=== PATIENT | male | born 1965 | race Caucasian/White ===

== ENCOUNTER 2017-10-15 14:51 | Day surgery (SDC) | payer SELFPAY ==
[2017-10-15] MEDS ORDERED: Levofloxacin 500 mg/D5W 100 ml Premix Bag ONE (16:00)
[2017-10-15] MEDS ORDERED: Iothalamate Meglumine 60% 50 ML VIAL FS ONE (16:08)
[2017-10-15] MEDS ORDERED: Fentanyl 100 MCG/2 ML VIAL ONE ×2 (16:19→17:46)
[2017-10-15] MEDS ORDERED: Propofol 200 MG/20 ML VIAL ONE (16:39)
[2017-10-15] MEDS ORDERED: Lidocaine 2% PF 10 ML AMP (For Epidural Use) ONE (16:39)
[2017-10-15] MEDS ORDERED: Ondansetron HCl/PF 4 MG/2 ML Vial ONE (16:39)
[2017-10-15] MEDS ORDERED: Dexamethasone 20 MG/5 ML VIAL ONE (16:39)
[2017-10-15] MEDS ORDERED: Phenazopyridine HCl 97.5 MG TABLET ONE (17:31)
--- NOTE | 2017-10-15 17:36 | HP ---
ER CONSULTATION NOTE DATE OF CONSULTATION: 10/15/2017 REASON FOR CONSULTATION: Solitary right kidney with right UPJ obstructing stone. HISTORY OF PRESENT ILLNESS: Mr. Olivarez is a 52-year-old male, who presented to [facility] Emergency Room with a 2-day history of right flank pain. Due to progressive increase in his discomfort, he presented to the emergency room. Upon presentation, he had known significant nausea, vomiting, fever; however, has a poor appetite, has not ate anything since last night. Patient does relate history of hematuria diagnosed with multiple kidney stones back in 2011 as he presented to [facility] Emergency Room at that time. Prior CT demonstrated right hydroureteronephrosis due to history of multiple right renal calculi measuring 1-2 mm up to 6 mm, 7 mm stone was seen in the bladder. He was advised regarding follow up with PCP; however, states that he has never seen a urologist and did not undergo surgical intervention. He relates passage of debris like passage of kidney stone 2-3 times in the past. Does relate baseline frequency of 5-6 times, his sensation of urinary hesitancy, occasional slow stream. Denies history of STDs, split stream, family history of prostate cancer. 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 Upon presentation in today's emergency room, CT scan demonstrated a large right UPJ stone measuring 1.7 x 12 mm per my review, Hounsfield unit 1500 with multiple right renal lithiasis. He also has a large bladder stone measuring approximately 1.7 x 2 cm. Given that he has a solitary kidney and a right UPJ stone, I did inform this [facility] to transition the patient to [facility] stay, which he agreed to proceed with ureteral stent placement. PAST MEDICAL HISTORY: 1. Solitary right kidney, congenital absence of left kidney: 2. History of kidney stones. PAST SURGICAL HISTORY: Hand surgery. SOCIAL HISTORY: Negative. Chews tobacco. Denies illicit drugs. However, prior social history by ER demonstrates history of marijuana abuse. No significant smoking tobacco history. ALLERGIES: No known drug allergies. PHYSICAL EXAMINATION: VITAL SIGNS: In the emergency room, his vital signs are stable. He is afebrile. He was provided morphine for pain and then currently appears to be well controlled. HEENT: Unremarkable. HEART: Regular rate. LUNGS: Clear. ABDOMEN: Soft. No rigidity, no rebound, no CVA tenderness. GENITOURINARY: Exam demonstrates meatus in normal orthotopic position; however , there is a small web of mucosa, appears to have early hypospadias changes; however, the true meatus is in normal orthotopic position with no significant meatal stenosis. Testes are descended with no evidence of intratesticular mass. RECTAL: Digital rectal exam demonstrates approximately 35 grams prostate with no discrete nodules or induration. PERTINENT LABS AND IMAGING DATA: Creatinine is 0.86. White count normal at 7.9 , hemoglobin 15 and platelets 218. Urinalysis demonstrates zion urine of 100 glucose, large blood, 1+ bacteria, greater than 50 rbc's, negative leukocytes, negative nitrites. CT of the abdomen and pelvis per my review prostate measures approximately 2.9 x 2.8 x 2.8 with no significant BPH component. Bladder stone measures 1.7 x 2 cm. Per my review, there are multiple right punctate renal lithiasis measuring punctate to 3-4 mm, approximately 5 stones are seen in the right kidney, large UPJ stone measuring 1.7 cm x 12 mm, Hounsfield unit 1500 with hydronephrosis. Incidental liver cysts are noted. IMPRESSION/PLAN: Mr. Olivarez is a 52-year-old male with history of recurrent urolithiasis, denies prior surgical intervention, presents with a solitary right kidney with right UPJ stone, large bladder stone. The bladder stone has been present since 2011, likely has grown since then. Advised patient regarding cystoscopy, right retrograde stent placement, possible percutaneous nephrostomy tube if indicated reviewed. We will stage his urethra as he does have obstructive urinary symptoms, may be due to irritative symptoms due to large bladder stone. [employer] databases software consultant to the OR. Elective treatment of his ureteral, renal, bladder stone reviewed with patient in detail. MARIN
[2017-10-15] MEDS ORDERED: Non-Formulary Medication 1 EACH PO PRN (18:26)
[2017-10-15] MEDS ORDERED: Promethazine HCl 25 MG/ML VIAL IM/IV PRN (18:26)
[2017-10-15] MEDS ORDERED: Ondansetron HCl/PF 4 MG/2 ML Vial IVP PRN (18:26)
[2017-10-15] MEDS ORDERED: HYDROcodone/Acetaminophen 5/325 mg Tablet ONE (18:54)
--- NOTE | 2017-10-16 05:58 | OP ---
DATE OF SERVICE: 10/15/2017 PREOPERATIVE DIAGNOSES: A 52-year-old male with solitary right kidney, presents with: 1. Right ureteropelvic junction stone, 1.7 x 12 mm, multiple right renal lithiasis, approximately 5 in number, variable from punctate to 3-4 mm. 2. Large bladder stone measuring 1.7 cm x 2 cm. POSTOPERATIVE DIAGNOSES: A 52-year-old male with solitary right kidney, presents with: 1. Right ureteropelvic junction stone, 1.7 x 12 mm, multiple right renal lithiasis, approximately 5 in number, variable from punctate to 3-4 mm. 2. Large bladder stone measuring 1.7 cm x 2 cm. PROCEDURES: Cystoscopy, right retrograde pyelogram, 6 x 28 double-J ureteral stent placement. SURGEON: Anjelica Lino DO ANESTHESIA: LMA general. COMPLICATIONS: None apparent. DISPOSITION: Recovery room in stable condition. SPECIMEN: None. INTRAOPERATIVE FINDINGS: 1. Wide caliber bulbar stricture, not warranting treatment, nonobstructing. 2. Mild BPH coapting lateral lobes. 3. Inflammatory changes of bladder secondary to large bladder stone. 4. UOs in normal orthotopic position. 5. Right retrograde pyelogram demonstrating a large radiodense UPJ stone with hydronephrosis. INDICATIONS FOR THE SURGERY: Mr. Olivarez is a 52-year-old male who presented to [facility] Emergency Room due to right flank pain. Patient known to have solitary right kidney, denied pr ior surgical assessment by . Due to his solitary kidney, enlarged obstructing ureteral stone advis ed regarding cystoscopy, right retrograde stent. He has had a bladder stone that was never addressed , previously measuring 7 mm with interval enlargement on recent CT scan. He was informed regarding i ndications for ureteral stent, stage procedure due to multiple bladder, renal, large ureteral stones were reviewed with him in detail. Indications for a stent due to solitary kidney and large obstructi ng UPJ stone discussed with him in detail. Risks and complications including, but not limited to, bl eeding, pain, infection, injury to adjacent organs, urosepsis, stricture formation reviewed. All que stions were answered to his satisfaction and he desired to proceed. DESCRIPTION OF THE PROCEDURE: After an informed consent is signed, the patient is taken to the opera ting room, placed in a dorsal lithotomy position with the genital area prepped and draped in the ua surgical sterile fashion. A 21-Amharic cystoscope was utilized for cystoscopy. Broad-spectrum anti biotics were provided. Bilateral RICHARD hose, SCDs placed. Upon entering with a 21-Amharic cystoscope, there was a bulbar stricture, wide caliber nonobstructing. His urethral mucosa demonstrated mild fib rotic changes diffusely; however, I was able to pass the scope without any resistance. Prostatic ure thra demonstrated coapting lateral lobes, no significant median lobe was appreciated. Mild BPH compo nent is appreciated. Upon entering the bladder, there is a large spiculated bladder stone with react dudley inflammatory changes due to irritative bladder stone. I did not appreciate any obvious bladder m ass, lesions concerning for malignancy. The UOs are identified in normal orthotopic position. A 5 F rench open-ended catheter was utilized for retrograde pyelogram which demonstrated that his ureter wa s dilated throughout the entire course. A 0.35 center wire was able to be passed without difficulty to the level of the right upper to mid pole. A 6 x 28 double-J ureteral stent was able to be passed w ithout difficulty. He tolerated the procedure well. Bladder was emptied. I was able to easily pass an 18 Amharic Mckeon catheter without difficulty to assess for ease of Mckeon catheter placement should patient go into retention. The bulbar stricture was not obstructing out of concern as the catheter passed without difficulty. He tolerated the procedure well. He is discharged with [place] 5/325 #15, ciprofloxacin for a course of 5 days, Flomax #30 one p.o. daily, Colace p.r.n., and Azo p.r.n. Urine culture has been obtained by Liliana OBRIEN per my request, he will follow up with me next week to [facility] surgical intervention of his renal, ureteral, bladder stone.
== END 2017-10-15 19:58 | disposition home or self-care (01) ==
LOC: SDC 14:51
PROVIDERS: ATTEND Urology
PROC: 0T9680Z Drainage of Right Ureter with Drainage Device, Via Natural or Artificial Opening Endoscopic (ICD-10-PCS; principal; 2017-10-15)
DX: N13.2 Hydronephrosis with renal and ureteral calculous obstruction (principal); N21.0 Calculus in bladder; N40.0 Benign prostatic hyperplasia without lower urinary tract symptoms; N35.8 Other urethral stricture; Q60.0 Renal agenesis, unilateral; F17.290 Nicotine dependence, other tobacco product, uncomplicated; Z98.890 Other specified postprocedural states; Z87.442 Personal history of urinary calculi
CPT/HCPCS: 74420; 76000; C1758; C1769; J1100; J1956; J2001; J2405; J2704; J3010; Q9961

== ENCOUNTER 2017-10-22 12:16 | Outpatient (CLI) | payer OTHER, SELFPAY | END 2017-10-22 12:17 | disposition home or self-care (01) | LOC: LABBT 12:16 | PROVIDERS: ATTEND Family Medicine | DX: Z01.812 Encounter for preprocedural laboratory examination (principal); N21.0 Calculus in bladder; N20.2 Calculus of kidney with calculus of ureter | CPT/HCPCS: 93005; 93010 ==

== ENCOUNTER 2017-10-28 05:41 | Day surgery (SDC) | payer OTHER, SELFPAY ==
[2017-10-22 12:28] VITALS: BMI 27.1
[2017-10-28] MEDS ORDERED: Levofloxacin 500 mg/D5W 100 ml Premix Bag ONE (07:12)
[2017-10-28] MEDS ORDERED: Iothalamate Meglumine 60% 50 ML VIAL FS ONE (07:17)
[2017-10-28] MEDS ORDERED: Promethazine HCl 25 MG/ML VIAL ONE (07:29)
[2017-10-28] MEDS ORDERED: Fentanyl 100 MCG/2 ML VIAL ONE (07:29)
--- NOTE | 2017-10-28 08:53 | RAD ---
KUB: HISTORY: Preop. Renal calculus. FINDINGS: The bowel gas pattern is nonobstructed. There is a round bladder calculus present. Right ureteral s tent is noted. Along the proximal end of the stent is a large oblong-shaped calcification measuring 18 mm in length. IMPRESSION: Bladder calculus and calculus along the proximal aspect of the right ureteral stent. POS: [facility]
[2017-10-28] MEDS ORDERED: PHENYLEPHRINE-NS 100 MCG/ML 10 ML SYRINGE ONE ×2 (09:35→16:04)
[2017-10-28] MEDS ORDERED: Phenazopyridine HCl 97.5 MG TABLET ONE (11:06)
--- NOTE | 2017-10-28 11:10 | OP ---
DATE OF PROCEDURE: 10/28/2017 PREOPERATIVE DIAGNOSES: 1. A 52-year-old male with history of recurrent urolithiasis presented with multiple renal lithiasis: Right 1.8 x 1.2 cm proximal ureteral calculi at the level of the ureteropelvic junction, multiple nonobstructing renal lithiasis, approximately 4-5 punctate in number, largest in the right upper pole approximately 5-6 mm. 2. Large bladder stone measuring 2.4 x 1.4 cm. 3. Incidental mild benign prostatic hyperplasia with coapting little lateral lobes, high median bar. 4. Wide caliber bulbar stricture, nonobstructing in nature. 5. History of solitary right kidney, congenital absence of left kidney. POSTOPERATIVE DIAGNOSES: 1. A 52-year-old male with history of recurrent urolithiasis presented with multiple renal lithiasis: Right 1.8 x 1.2 cm proximal ureteral calculi at the level of the ureteropelvic junction, multiple nonobstructing renal lithiasis, approximately 4-5 punctate in number, largest in the right upper pole approximately 5-6 mm. 2. Large bladder stone measuring 2.4 x 1.4 cm. 3. Incidental mild benign prostatic hyperplasia with coapting little lateral lobes, high median bar. 4. Wide caliber bulbar stricture, nonobstructing in nature. 5. History of solitary right kidney, congenital absence of left kidney. PROCEDURE: Cystoscopy right retrograde, 6 x 28 double-J ureteral stent exchange , flexible ureteroscopy, pyeloscopy, laser lithotripsy of large right proximal UPJ stone, laser lithotripsy of renal lithiasis, laser lithotripsy of large bladder stone measuring 2.4 cm in largest dimension x 1.4 cm. SURGEON: Anjelica Lino D.O. ANESTHESIA: General. COMPLICATIONS: None apparent. DISPOSITION: To recovery room in stable condition. SPECIMEN: Renal and bladder stone for chemical analysis. INDICATIONS FOR PROCEDURE AND HISTORY: Mr. Olivarez is a 52-year-old male who presented to [facility] Emergency Room due to right flank pain and found to have a large right obstructing ureteral stone at proximal UPJ with solitary right kidney with multiple right renal lithiasis, large bladder stone as above. The patient has mild BPH with nonobstructing bulbar stricture, no prior history of urinary retention, history of multiple urolithiasis. Previous bladder stone is seen on prior CAT scan 2 years ago, likely the same stone with interval growth. He underwent ureteral stent placement and presents today for treatment of his renal ureteral bladder stone. Risks and complications and indications including, but not limited to, bleeding, pain, infection, injury to adjacent organs, urosepsis, stricture formation, ureteral renal injury, likely secondary procedure was reviewed with him in detail and he desired to proceed. DESCRIPTION OF PROCEDURE: After an informed consent is signed, the patient is taken to the operating room, placed in a dorsal lithotomy position with the genital area prepped and draped in the usual surgical sterile fashion. Patient was provided with broad spectrum antibiotics. A 21-Kenyan cystoscope was utilized for cystoscopy and again demonstrating wide caliber bulbous stricture, nonobstructing. Bilateral lateral lobes of the prostate coapting with high median bar. The bladder was entered and previously placed ureteral stent and large bladder stone was visualized. We treated the ureteral renal stone first. As such, the ureteral stent was removed to the level of the meatus and a 0.35 sensor wire was passed to the right mid to upper pole. At this time, the ureteral stent was removed and a 10-Kenyan dual-lumen access sheath was passed over the guidewire and a retrograde pyelogram was performed opacifying the collecting system with proper placement of the wire. A second safety wire was then placed, Super Stiff. The dual-lumen access sheath was then subsequently removed. Upon retrograde pyelogram, patient did have a mild bifid renal pelvis with long upper pole infundibulum. An 11/13 Kenyan x 46 navigator was passed to the level of the stone and the stone did migrate into the midpole. At this time, with the safety wire in situ, we passed the flexible ureteroscope over the working wire. We surveyed the collecting system which demonstrated a 6 mm right upper pole renal stone with a mild bifid renal pelvis. We laser lithotripsy this and the basket extraction of the stone nidus was performed. At this time, we engaged the right large 1.8 cm stone which migrated into the midpole. Using 365 micron laser fiber, we laser lithotripsied the stone into multiple fragments. The stone was very dense in nature. At the end of the procedure, most of the stone remnants were dust-like however, there were some fragments that were large enough to be basket extracted, which migrated into the mid posterior reyes. Using a 0 tip nitinol basket, we basket extracted all those that needed to be basket extracted. At the end of the procedure, what remained was tiny dust-like caliber which he will most likely pass. I did not see any obvious stone nidus that further warranted laser lithotripsy. It did take quite some time as the stone was very large and dense in nature. We surveyed the ureter, which demonstrated no evidence of ureteral mucosa trauma. No evidence of ureteral stone nidus was visualized. Previous retrograde pyelogram demonstrated prominence of the left distal ureter as well; however, no stone was seen prior CT scan down the course of the ureter. I did survey the ureter as such and I did not appreciate any obvious evidence of stricture, ureteral stone nidus. At this time, we then engaged the large bladder stone. Using a 1000 micron laser fiber, we laser lithotripsied the stone into multiple fragments. Again, the stone was very dense corresponding to his renal ureteral calculi. These stone fragments were then evacuated with an [employer] evacuator using 25 cystoscope sheath. At the end of the procedure, I did not see any stone nidus residual within the bladder itself. The stent was in good position and tolerated the procedure well. He will be discharged with refill on his pain medication, antibiotics for 5-7 days, he may resume his AZO and Flomax. At the end of the procedure, I was able to intubate his urethra without any issues using a 16 Kenyan coude. He will be sent home without a catheter unless he has postop urinary retention. As there is large stone nidus in a solitary kidney, I will arrange for CT scan to be performed prior to stent pull next week. MARIN
[2017-10-28] MEDS ORDERED: Labetalol HCl 100 MG/20 ML VIAL ONE (16:04)
[2017-10-28] MEDS ORDERED: Lidocaine 1% PF 5 ML VIAL ONE (16:04)
[2017-10-28] MEDS ORDERED: ePHEDrine/0.9% NaCl/PF SYRINGE 50 mg/10 ml ONE (16:04)
[2017-10-28] MEDS ORDERED: Ondansetron HCl/PF 4 MG/2 ML Vial ONE (16:04)
[2017-10-28] MEDS ORDERED: Glycopyrrolate 0.2 MG/ML 5 ML SYRINGE ONE (16:04)
[2017-10-28] MEDS ORDERED: Propofol 200 MG/20 ML VIAL ONE (16:04)
--- NOTE | 2017-10-28 16:23 | RAD ---
RETROGRADE IVP: History: Right renal calculi. Technique: 15 intraoperative serial images obtained. FINDINGS: There is catheterization and injection of the right ureter. A distal right ureteral calculus is visua lized. Right ureteral stent is seen. There is a filling defect seen in the right ureter. There is an area of opacity in the right renal pelvis compatible with a right ureteral calculus. IMPRESSION: Retrograde right sided ureterogram with right ureteral stent and right ureteral calculus visualized. POS: [facility]
[2017-10-31 13:18] LABS: CA Oxalate Dihydrate 10 % (.); CA Oxalate Monohydrate 70 % (.); CA Phosphate 20 % (.); Color Brown (.); Color Tan (.)
== END 2017-10-28 12:15 | disposition home or self-care (01) ==
LOC: SDC 05:41
PROVIDERS: ATTEND Urology
PROC: 0TF38ZZ Fragmentation in Right Kidney Pelvis, Via Natural or Artificial Opening Endoscopic (ICD-10-PCS; principal; 2017-10-28)
PROC: 0T768DZ Dilation of Right Ureter with Intraluminal Device, Via Natural or Artificial Opening Endoscopic (ICD-10-PCS; principal; 2017-10-28)
PROC: 0TCB8ZZ Extirpation of Matter from Bladder, Via Natural or Artificial Opening Endoscopic (ICD-10-PCS; principal; 2017-10-28)
DX: N20.2 Calculus of kidney with calculus of ureter (principal); N21.0 Calculus in bladder; N40.0 Benign prostatic hyperplasia without lower urinary tract symptoms; Q60.0 Renal agenesis, unilateral; Z87.442 Personal history of urinary calculi
CPT/HCPCS: 74000; 74420; 82365; 88300; C1758; C1769; J1956; J2001; J2405; J2550; J2704; J3010; Q9961

== ENCOUNTER 2017-11-06 10:08 | Outpatient (CLI) | payer OTHER ==
--- NOTE | 2017-11-06 12:09 | CT ---
CT OF THE ABDOMEN AND PELVIS WITHOUT IV CONTRAST: Date: 11/06/17 HISTORY: Right ureteral stone, follow-up stones. COMPARISON: Prior CT dated 10/15/17, 08/11/12, and 08/16/08. FINDINGS: The lung bases are clear. The numerous hypodensities involving the liver are unchanged. There is mild residual hydronephrosis seen on the right. No residual stone is seen within the right r enal collecting system. The stent projects into the bladder and proximal anterior reyes of the right renal collecting system. There is a 5.0 mm stone within the inferior pole of the right kidney. There is a 3.6 mm stone within the superior pole of the right kidney. The previously seen bladder stone is no longer present. The previously seen 1.2 cm stone within the proximal right ureter is no longer see n. There is mild periureteral inflammatory stranding. Left kidney is absent. The visualized left and right adrenal glands appear within normal limits. There is slight variant anatomy involving the left adrenal gland which may be congenital. The unopacified large and small bowel are unremarkable. Unopacified pancreas is unremarkable. There is a normal retrocecal appendix. No acute osseous abnormality is evident. IMPRESSION: 1. Interval placement of a right ureteral stent with removal of previously seen right ureteral stone and bladder stone. 2. There is 3.6 mm stone within superior pole of the right kidney. There is a 5.0 mm stone within th e inferior pole of the right kidney. 3. Nonvisualization of the left kidney, likely congenitally absent. There is variant anatomy involvi ng the left adrenal gland. 5. The hepatic hypodensities are unchanged from their most recent comparison of 10/15/17. Differenti al considerations and recommendations remain the same as per the prior exam. POS: [facility]
== END 2017-11-06 10:09 | disposition home or self-care (01) ==
LOC: CT 10:08
PROVIDERS: ATTEND Urology
DX: N20.2 Calculus of kidney with calculus of ureter (principal); K76.89 Other specified diseases of liver
CPT/HCPCS: 74176